=== PATIENT | male | born 1960 | race African-American/Black ===

== ENCOUNTER 2021-06-13 00:15 | Inpatient (IN) ==
[2021-06-13] MEDS ORDERED: SODIUM CHLORIDE 0.9% 1,000 ML IV STA ×2 (00:41→01:47)
[2021-06-13 01:12] LABS: ABG Base Excess -12.9 MMOL/L (-2.5-2.5); ABG HCO3 14.5 MMOL/L (20-26); ABG Oxygen Saturation 98.4 % (95-100); ABG PCO2 23.4 MM HG (35-48); ABG PH 7.316 (7.35-7.45); ABG TCO2 10.8 MMOL/L (23-27)
[2021-06-13 01:14] LABS: Basophils % 0.3 % (0.0-0.8); Hematocrit 33.8 VOL% (42.0-52.0); Immature Granulocytes % 0.6 %; Immature Granulocytes Absolute 0.06 #; Lymphocytes # 0.7 10*3/uL (1.4-4.0); Lymphocytes % 6.8 % (21.2-54.2); Mean Corpuscular HGB Conc 32.5 GM/DL (32-36); Mean Corpuscular Volume 73.8 FL (87-102); Mean Platelet Volume 10.3 FL (9.6-12.0); Neutrophils % 86.3 % (38.7-73.9); Platelet Count 372 T/CUMM (130-400); Red Blood Count 4.58 MC/CUMM (3.8-5.5); Red Cell Distribution Width 14.4 % (9.3-17.3); White Blood Count 10.5 T/CUMM (4-12)
[2021-06-13 01:28] LABS: PT Patient Result 10.9 SECS (10.5-12.0); Partial Thromboplastin Time 28.9 SECS (23.8-32.1)
[2021-06-13 01:34] LABS: Alanine Aminotransferase < 9 U/L (16-61); Albumin 2.8 G/DL (3.4-5.0); Alkaline Phosphatase 117 U/L (45-117); Aspartate Amino Transferase 6 U/L (0-37); Blood Urea Nitrogen 78 MG/DL (7-18); Calcium 9.4 MG/DL (8.5-10.1); Carbon Dioxide 14 MMOL/L (21-32); Osmolality,Calculated 297.6 MOS/KG (273-304); Potassium 4.3 MMOL/L (3.5-5.1); Sodium 124 MMOL/L (136-145); Total Protein 7.5 G/DL (6.4-8.2)
[2021-06-13 01:37] LABS: Estimated Glom Filtration Rate 0 ML/MIN
[2021-06-13 01:38] LABS: Glucose 566 MG/DL (74-106)
[2021-06-13] MEDS ORDERED: INSULIN REGULAR 100 UNIT/ML IV STA (01:41)
[2021-06-13] MEDS ORDERED: MORPHINE 4 MG/1 ML VIAL IV STA (01:41)
[2021-06-13] MEDS ORDERED: INSULIN REGULAR DRIP 100 ML IV PRN (01:41)
[2021-06-13] MEDS ORDERED: ONDANSETRON 4 MG/2 ML VIAL IV STA (01:41)
[2021-06-13] MEDS ORDERED: INSULIN REGULAR 100 UNIT/ML IV ONE (03:38)
[2021-06-13] MEDS ORDERED: SODIUM BICARB INJ 100 MEQ in STERILE WATER INJ 400 ML IV PRN (03:38)
[2021-06-13] MEDS ORDERED: DEXTROSE 10% 250 ML BAG IV PRN ×3 (03:38→18:13)
[2021-06-13] MEDS ORDERED: SODIUM CHLORIDE 0.9% 1,000 ML IV ONE (03:38)
[2021-06-13] MEDS ORDERED: SODIUM PHOSPHATE INJ 14.3 MMOL in SODIUM CHLORIDE 0.9% 250 ML IV PRN (03:38)
[2021-06-13] MEDS ORDERED: MAGNESIUM SULF RIDER 2 GM/50 ML PREMIX IV PRN (03:39)
[2021-06-13] MEDS ORDERED: MAGNESIUM SULF RIDER 4 GM/100 ML PREMIX IV PRN (03:39)
[2021-06-13] MEDS ORDERED: INSULIN REGULAR DRIP 100 ML IV SCH (04:00)
[2021-06-13] MEDS: SODIUM CHLORIDE 0.9% 1,000 ML IV SCH ×4 (05:06→09:50)
[2021-06-13] MEDS: ONDANSETRON 4 MG/2 ML VIAL IV PRN (05:15)
[2021-06-13 06:35] LABS: Basophils % 0.2 % (0.0-0.8); Eosinophils % 0.2 % (0.00-10.9); Hematocrit 29.2 VOL% (42.0-52.0); Hemoglobin 9.7 GM/DL (14.0-18.0); Immature Granulocytes % 0.6 %; Immature Granulocytes Absolute 0.06 #; Lymphocytes % 9.8 % (21.2-54.2); Mean Corpuscular HGB Conc 33.2 GM/DL (32-36); Mean Corpuscular Volume 72.6 FL (87-102); Mean Platelet Volume 9.3 FL (9.6-12.0); Monocytes % 10.8 % (1.7-12.7); Neutrophils % 78.4 % (38.7-73.9); Platelet Count 292 T/CUMM (130-400); Red Blood Count 4.02 MC/CUMM (3.8-5.5); Red Cell Distribution Width 14.2 % (9.3-17.3); White Blood Count 10.3 T/CUMM (4-12)
[2021-06-13 07:15] LABS: Calcium 8.2 MG/DL (8.5-10.1); Osmolality,Calculated 294.2 MOS/KG (273-304); Potassium 4.5 MMOL/L (3.5-5.1)
[2021-06-13] MEDS: DEXTROSE 5% NACL 0.9% 1,000 ML IV SCH ×3 (09:06→17:59)
[2021-06-13 09:14] LABS: Calcium 8.5 MG/DL (8.5-10.1); Osmolality,Calculated 291.2 MOS/KG (273-304); Potassium 3.6 MMOL/L (3.5-5.1)
[2021-06-13] MEDS: POTASSIUM CHLORIDE RIDER 10 MEQ/100 ML PREMIX IV PRN ×2 (09:30→10:30)
[2021-06-13] MEDS: ENOXAPARIN 30 MG/0.3 ML SYRINGE SUBCUT SCH (09:46)
[2021-06-13 13:18] LABS: Potassium 3.7 MMOL/L (3.5-5.1)
[2021-06-13] MEDS: DEXT 5% NACL 0.45% KCL 20 MEQ 20 MEQ/1,000 ML BAG IV SCH ×2 (13:46→17:59)
[2021-06-13] MEDS: INSULIN GLARGINE 100 UNIT/ML SUBCUT SCH (17:05)
[2021-06-13] MEDS: LACTATED RINGERS 1,000 ML IV SCH ×2 (17:43→23:41)
[2021-06-13] MEDS ORDERED: GLUCAGON 1 MG VIAL IM PRN (18:10)
[2021-06-13 18:39] LABS: Osmolality,Calculated 288.7 MOS/KG (273-304); Potassium 3.9 MMOL/L (3.5-5.1)
[2021-06-13] MEDS: INSULIN REGULAR 100 UNIT/ML SUBCUT SCH ×2 (19:27→22:16)
[2021-06-13] MEDS ORDERED: INSULIN GLARGINE 100 UNIT/ML SUBCUT SCH (21:00)
[2021-06-13] MEDS ORDERED: SODIUM CHLORIDE 0.45% 1,000 ML IV SCH (21:00)
[2021-06-13] MEDS ORDERED: INSULIN REGULAR 100 UNIT/ML SUBCUT SCH (22:00)
[2021-06-14] MEDS: INSULIN REGULAR 100 UNIT/ML SUBCUT SCH ×6 (00:16→20:15)
[2021-06-14] MEDS: LACTATED RINGERS 1,000 ML IV SCH ×4 (00:25→16:50)
[2021-06-14 03:48] LABS: Basophils % 0.3 % (0.0-0.8); Eosinophils # 0.2 10*3/uL (0.0-0.87); Eosinophils % 2.7 % (0.00-10.9); Hematocrit 27.9 VOL% (42.0-52.0); Hemoglobin 9.1 GM/DL (14.0-18.0); Immature Granulocytes % 0.3 %; Immature Granulocytes Absolute 0.02 #; Lymphocytes # 1.3 10*3/uL (1.4-4.0); Lymphocytes % 20.8 % (21.2-54.2); Mean Corpuscular HGB Conc 32.6 GM/DL (32-36); Mean Corpuscular Volume 72.8 FL (87-102); Mean Platelet Volume 9.3 FL (9.6-12.0); Neutrophils % 65.9 % (38.7-73.9); Platelet Count 282 T/CUMM (130-400); Red Blood Count 3.83 MC/CUMM (3.8-5.5); Red Cell Distribution Width 14.5 % (9.3-17.3); White Blood Count 6.2 T/CUMM (4-12)
[2021-06-14 04:03] LABS: Calcium 8.6 MG/DL (8.5-10.1); Osmolality,Calculated 288.7 MOS/KG (273-304); Potassium 3.7 MMOL/L (3.5-5.1)
[2021-06-14] MEDS: POTASSIUM CHLORIDE RIDER 10 MEQ/100 ML PREMIX IV PRN ×2 (04:39→05:39)
[2021-06-14 04:41] LABS: Bacteria,Urine Many /HPF (Few); RBC,Urine 37 /HPF (0-4); Squamous Epithelial Cell,Urine Occasional /HPF (0-10); Triple Phosphate Crystal,Urine Occasional /HPF (Few)
[2021-06-14 04:42] LABS: Glucose,Urine (UA) 100 mg/dL (Negative); Ketones,Urine Negative (Negative); Protein,Urine >=300 mg/dL (Negative); Urine Appearance Clear (Clear); Urine Color Yellow (Yellow); Urine Specific Gravity 1.015 (1.001-1.035); Urine pH > 9.0 (4.5-8.0)
[2021-06-14 04:43] LABS: Bilirubin,Urine Negative (Negative); Blood, Urine Moderate mg/dL (Negative); Nitrite,Urine Negative (Negative); Urine Urobilinogen 0.2 eU/dL (<2.0)
[2021-06-14] MEDS: ENOXAPARIN 30 MG/0.3 ML SYRINGE SUBCUT SCH (08:54)
[2021-06-14] MEDS: INSULIN GLARGINE 100 UNIT/ML SUBCUT SCH ×2 (08:54→20:15)
[2021-06-14] MEDS: METOPROLOL TARTRATE 25 MG TABLET PO SCH ×2 (08:54→20:15)
[2021-06-14] MEDS ORDERED: ALUMINUM/MAGNES/SIMETH MAX STR 30 ML UDCUP PO PRN (12:26)
[2021-06-14] MEDS: PANTOPRAZOLE 40 MG TABLET PO SCH (12:53)
[2021-06-14] MEDS: amLODIPine 5 MG TABLET PO SCH (14:45)
[2021-06-14] MEDS: ASPIRIN EC 81 MG TABLET PO SCH (14:45)
[2021-06-14] MEDS: RIVAROXABAN 2.5 MG TABLET PO SCH ×2 (15:25→20:15)
[2021-06-14] MEDS: GABAPENTIN 400 MG CAPSULE PO SCH (20:15)
[2021-06-14] MEDS: ATORVASTATIN 40 MG TABLET PO SCH (20:15)
[2021-06-14] MEDS: GABAPENTIN 300 MG CAPSULE PO SCH (20:16)
[2021-06-15] MEDS: INSULIN REGULAR 100 UNIT/ML SUBCUT SCH ×6 (00:10→20:42)
[2021-06-15] MEDS: LACTATED RINGERS 1,000 ML IV SCH ×4 (00:33→21:00)
[2021-06-15 04:19] LABS: Basophils % 0.5 % (0.0-0.8); Eosinophils # 0.3 10*3/uL (0.0-0.87); Eosinophils % 5.1 % (0.00-10.9); Hematocrit 29.3 VOL% (42.0-52.0); Hemoglobin 9.4 GM/DL (14.0-18.0); Immature Granulocytes % 0.4 %; Immature Granulocytes Absolute 0.02 #; Lymphocytes # 1.9 10*3/uL (1.4-4.0); Lymphocytes % 34.4 % (21.2-54.2); Mean Corpuscular HGB Conc 32.1 GM/DL (32-36); Mean Corpuscular Volume 75.1 FL (87-102); Mean Platelet Volume 9.9 FL (9.6-12.0); Monocytes % 12.1 % (1.7-12.7); Neutrophils % 47.5 % (38.7-73.9); Platelet Count 298 T/CUMM (130-400); Red Cell Distribution Width 14.7 % (9.3-17.3); White Blood Count 5.5 T/CUMM (4-12)
[2021-06-15 04:26] LABS: Calcium 8.4 MG/DL (8.5-10.1); Osmolality,Calculated 285.3 MOS/KG (273-304); Potassium 4.3 MMOL/L (3.5-5.1)
[2021-06-15] MEDS: MORPHINE 2 MG/1 ML SYRINGE IV PRN ×3 (08:46→20:42)
[2021-06-15] MEDS: ASPIRIN EC 81 MG TABLET PO SCH (08:46)
[2021-06-15] MEDS: CALCIUM (CARBONATE)/VITAMIN D 600 MG-400 UNIT TABLET PO SCH (08:47)
[2021-06-15] MEDS: amLODIPine 5 MG TABLET PO SCH (08:47)
[2021-06-15] MEDS: PANTOPRAZOLE 40 MG TABLET PO SCH (08:48)
[2021-06-15] MEDS: GABAPENTIN 300 MG CAPSULE PO SCH ×2 (08:48→21:09)
[2021-06-15] MEDS: RIVAROXABAN 2.5 MG TABLET PO SCH ×2 (08:48→20:40)
[2021-06-15] MEDS: METOPROLOL TARTRATE 25 MG TABLET PO SCH ×2 (08:48→20:40)
[2021-06-15] MEDS: INSULIN GLARGINE 100 UNIT/ML SUBCUT SCH (08:48)
[2021-06-15] MEDS: cefTRIAXone 1,000 MG in SODIUM CHLORIDE 0.9% 100 ML IV SCH (11:29)
[2021-06-15] MEDS: LINEZOLID 600 MG TABLET PO SCH ×2 (11:29→20:40)
[2021-06-15] MEDS: GABAPENTIN 400 MG CAPSULE PO SCH (20:40)
[2021-06-15] MEDS: ATORVASTATIN 40 MG TABLET PO SCH (20:40)
[2021-06-15] MEDS ORDERED: INSULIN GLARGINE 100 UNIT/ML SUBCUT SCH (21:00)
[2021-06-16] MEDS: LACTATED RINGERS 1,000 ML IV SCH ×3 (00:41→18:38)
[2021-06-16] MEDS: INSULIN REGULAR 100 UNIT/ML SUBCUT SCH ×6 (00:41→21:00)
[2021-06-16 07:40] LABS: Calcium 8.4 MG/DL (8.5-10.1); Osmolality,Calculated 280.7 MOS/KG (273-304); Potassium 4.1 MMOL/L (3.5-5.1)
[2021-06-16] MEDS: RIVAROXABAN 2.5 MG TABLET PO SCH ×2 (09:46→21:01)
[2021-06-16] MEDS: PANTOPRAZOLE 40 MG TABLET PO SCH (09:46)
[2021-06-16] MEDS: METOPROLOL TARTRATE 25 MG TABLET PO SCH ×2 (09:46→21:01)
[2021-06-16] MEDS: amLODIPine 5 MG TABLET PO SCH (09:46)
[2021-06-16] MEDS: GABAPENTIN 300 MG CAPSULE PO SCH (09:46)
[2021-06-16] MEDS: CALCIUM (CARBONATE)/VITAMIN D 600 MG-400 UNIT TABLET PO SCH (09:46)
[2021-06-16] MEDS: ASPIRIN EC 81 MG TABLET PO SCH (09:46)
[2021-06-16] MEDS: LINEZOLID 600 MG TABLET PO SCH ×2 (09:47→21:02)
[2021-06-16] MEDS: cefTRIAXone 1,000 MG in SODIUM CHLORIDE 0.9% 100 ML IV SCH (11:55)
[2021-06-16] MEDS: MEROPENEM 500 MG in SODIUM CHLORIDE 0.9% 100 ML IV SCH ×2 (13:33→21:02)
[2021-06-16] MEDS: POLYETHYLENE GLYCOL POWDER 17 GM PACK PO SCH ×2 (14:37→21:01)
[2021-06-16] MEDS: DOCUSATE SODIUM 100 MG CAPSULE PO SCH ×2 (14:37→21:02)
[2021-06-16] MEDS ORDERED: INSULIN GLARGINE 100 UNIT/ML SUBCUT SCH (21:00)
[2021-06-16] MEDS: GABAPENTIN 400 MG CAPSULE PO SCH (21:01)
[2021-06-16] MEDS: ATORVASTATIN 40 MG TABLET PO SCH (21:02)
[2021-06-17] MEDS: INSULIN REGULAR 100 UNIT/ML SUBCUT SCH ×6 (02:47→21:44)
[2021-06-17] MEDS: MEROPENEM 500 MG in SODIUM CHLORIDE 0.9% 100 ML IV SCH ×3 (04:21→21:45)
[2021-06-17 06:23] LABS: Calcium 8.4 MG/DL (8.5-10.1); Osmolality,Calculated 281.7 MOS/KG (273-304); Potassium 4.5 MMOL/L (3.5-5.1)
[2021-06-17] MEDS: DOCUSATE SODIUM 100 MG CAPSULE PO SCH ×2 (09:30→21:45)
[2021-06-17] MEDS: RIVAROXABAN 2.5 MG TABLET PO SCH ×2 (09:30→21:45)
[2021-06-17] MEDS: amLODIPine 5 MG TABLET PO SCH (09:30)
[2021-06-17] MEDS: LINEZOLID 600 MG TABLET PO SCH ×2 (09:30→21:45)
[2021-06-17] MEDS: METOPROLOL TARTRATE 25 MG TABLET PO SCH ×2 (09:30→21:45)
[2021-06-17] MEDS: GABAPENTIN 300 MG CAPSULE PO SCH ×2 (09:30→16:04)
[2021-06-17] MEDS: ASPIRIN EC 81 MG TABLET PO SCH (09:30)
[2021-06-17] MEDS: CALCIUM (CARBONATE)/VITAMIN D 600 MG-400 UNIT TABLET PO SCH (09:30)
[2021-06-17] MEDS: PANTOPRAZOLE 40 MG TABLET PO SCH (09:30)
[2021-06-17] MEDS: POLYETHYLENE GLYCOL POWDER 17 GM PACK PO SCH ×2 (09:34→21:44)
[2021-06-17] MEDS ORDERED: INSULIN GLARGINE 100 UNIT/ML SUBCUT SCH (21:00)
[2021-06-17] MEDS: GABAPENTIN 400 MG CAPSULE PO SCH (21:45)
[2021-06-17] MEDS: ATORVASTATIN 40 MG TABLET PO SCH (21:45)
[2021-06-17] MEDS: MORPHINE 2 MG/1 ML SYRINGE IV PRN (21:52)
[2021-06-18] MEDS: INSULIN REGULAR 100 UNIT/ML SUBCUT SCH ×3 (01:29→09:46)
[2021-06-18 04:50] LABS: Calcium 8.2 MG/DL (8.5-10.1); Osmolality,Calculated 288.5 MOS/KG (273-304)
[2021-06-18] MEDS: MORPHINE 2 MG/1 ML SYRINGE IV PRN ×3 (04:51→18:22)
[2021-06-18] MEDS: MEROPENEM 500 MG in SODIUM CHLORIDE 0.9% 100 ML IV SCH ×3 (04:52→20:26)
[2021-06-18] MEDS: POLYETHYLENE GLYCOL POWDER 17 GM PACK PO SCH ×2 (09:36→20:22)
[2021-06-18] MEDS: PANTOPRAZOLE 40 MG TABLET PO SCH (09:37)
[2021-06-18] MEDS: DOCUSATE SODIUM 100 MG CAPSULE PO SCH ×2 (09:37→20:22)
[2021-06-18] MEDS: amLODIPine 5 MG TABLET PO SCH (09:37)
[2021-06-18] MEDS: ASPIRIN EC 81 MG TABLET PO SCH (09:37)
[2021-06-18] MEDS: CALCIUM (CARBONATE)/VITAMIN D 600 MG-400 UNIT TABLET PO SCH (09:37)
[2021-06-18] MEDS: LINEZOLID 600 MG TABLET PO SCH ×2 (09:37→20:23)
[2021-06-18] MEDS: METOPROLOL TARTRATE 25 MG TABLET PO SCH ×2 (09:37→20:24)
[2021-06-18] MEDS: RIVAROXABAN 2.5 MG TABLET PO SCH ×2 (09:37→20:23)
[2021-06-18] MEDS: GABAPENTIN 300 MG CAPSULE PO SCH ×2 (09:38→14:31)
[2021-06-18] MEDS: ONDANSETRON 4 MG/2 ML VIAL IV PRN ×2 (09:39→18:22)
[2021-06-18] MEDS: INSULIN LISPRO 100 UNIT/ML SUBCUT SCH ×2 (16:13→20:25)
[2021-06-18] MEDS: GABAPENTIN 400 MG CAPSULE PO SCH (20:23)
[2021-06-18] MEDS: INSULIN GLARGINE 100 UNIT/ML SUBCUT SCH (20:25)
[2021-06-18] MEDS: ATORVASTATIN 40 MG TABLET PO SCH (20:31)
[2021-06-19] MEDS: MEROPENEM 500 MG in SODIUM CHLORIDE 0.9% 100 ML IV SCH ×3 (05:21→20:14)
[2021-06-19 06:17] LABS: Calcium 8.3 MG/DL (8.5-10.1); Osmolality,Calculated 284.7 MOS/KG (273-304); Potassium 4.1 MMOL/L (3.5-5.1)
[2021-06-19] MEDS: POLYETHYLENE GLYCOL POWDER 17 GM PACK PO SCH ×2 (08:30→20:18)
[2021-06-19] MEDS: INSULIN LISPRO 100 UNIT/ML SUBCUT SCH ×4 (08:30→20:18)
[2021-06-19] MEDS: ASPIRIN EC 81 MG TABLET PO SCH (08:30)
[2021-06-19] MEDS: DOCUSATE SODIUM 100 MG CAPSULE PO SCH ×2 (08:31→20:19)
[2021-06-19] MEDS: METOPROLOL TARTRATE 25 MG TABLET PO SCH ×2 (08:31→20:18)
[2021-06-19] MEDS: GABAPENTIN 300 MG CAPSULE PO SCH (08:31)
[2021-06-19] MEDS: RIVAROXABAN 2.5 MG TABLET PO SCH ×2 (08:31→20:19)
[2021-06-19] MEDS: PANTOPRAZOLE 40 MG TABLET PO SCH (08:31)
[2021-06-19] MEDS: amLODIPine 5 MG TABLET PO SCH (08:31)
[2021-06-19] MEDS: CALCIUM (CARBONATE)/VITAMIN D 600 MG-400 UNIT TABLET PO SCH (08:31)
[2021-06-19] MEDS: LINEZOLID 600 MG TABLET PO SCH ×2 (08:31→20:19)
[2021-06-19] MEDS: ONDANSETRON 4 MG/2 ML VIAL IV PRN (13:45)
[2021-06-19] MEDS: MORPHINE 2 MG/1 ML SYRINGE IV PRN ×2 (13:45→20:18)
[2021-06-19] MEDS: SODIUM CHLORIDE 0.45% 1,000 ML IV SCH (13:53)
[2021-06-19] MEDS: INSULIN GLARGINE 100 UNIT/ML SUBCUT SCH (20:17)
[2021-06-19] MEDS: ATORVASTATIN 40 MG TABLET PO SCH (20:18)
[2021-06-20] MEDS: MEROPENEM 500 MG in SODIUM CHLORIDE 0.9% 100 ML IV SCH ×3 (04:09→21:09)
[2021-06-20 05:33] LABS: Basophils % 0.7 % (0.0-0.8); Eosinophils # 0.4 10*3/uL (0.0-0.87); Eosinophils % 6.4 % (0.00-10.9); Hematocrit 27.5 VOL% (42.0-52.0); Hemoglobin 8.6 GM/DL (14.0-18.0); Immature Granulocytes % 0.4 %; Immature Granulocytes Absolute 0.02 #; Lymphocytes # 1.3 10*3/uL (1.4-4.0); Lymphocytes % 23.6 % (21.2-54.2); Mean Corpuscular HGB Conc 31.3 GM/DL (32-36); Mean Corpuscular Volume 76.8 FL (87-102); Mean Platelet Volume 9.8 FL (9.6-12.0); Monocytes % 11.8 % (1.7-12.7); Neutrophils % 57.1 % (38.7-73.9); Platelet Count 321 T/CUMM (130-400); Red Blood Count 3.58 MC/CUMM (3.8-5.5); Red Cell Distribution Width 14.7 % (9.3-17.3); White Blood Count 5.5 T/CUMM (4-12)
[2021-06-20 05:41] LABS: Calcium 7.7 MG/DL (8.5-10.1); Osmolality,Calculated 283.5 MOS/KG (273-304); Potassium 4.4 MMOL/L (3.5-5.1)
[2021-06-20] MEDS: SODIUM CHLORIDE 0.45% 1,000 ML IV SCH (05:57)
[2021-06-20] MEDS: INSULIN LISPRO 100 UNIT/ML SUBCUT SCH ×4 (10:23→21:08)
[2021-06-20] MEDS: ASPIRIN EC 81 MG TABLET PO SCH (10:24)
[2021-06-20] MEDS: METOPROLOL TARTRATE 25 MG TABLET PO SCH ×2 (10:24→21:11)
[2021-06-20] MEDS: LINEZOLID 600 MG TABLET PO SCH ×2 (10:24→21:11)
[2021-06-20] MEDS: amLODIPine 5 MG TABLET PO SCH (10:25)
[2021-06-20] MEDS: PANTOPRAZOLE 40 MG TABLET PO SCH (10:25)
[2021-06-20] MEDS: CALCIUM (CARBONATE)/VITAMIN D 600 MG-400 UNIT TABLET PO SCH (10:26)
[2021-06-20] MEDS: RIVAROXABAN 2.5 MG TABLET PO SCH ×2 (10:26→21:11)
[2021-06-20] MEDS: POLYETHYLENE GLYCOL POWDER 17 GM PACK PO SCH ×2 (10:30→21:07)
[2021-06-20] MEDS: DOCUSATE SODIUM 100 MG CAPSULE PO SCH ×2 (10:30→21:11)
[2021-06-20] MEDS: INSULIN GLARGINE 100 UNIT/ML SUBCUT SCH (21:08)
[2021-06-20] MEDS: ATORVASTATIN 40 MG TABLET PO SCH (21:11)
[2021-06-21] MEDS: SODIUM CHLORIDE 0.45% 1,000 ML IV SCH ×2 (04:32→21:13)
[2021-06-21] MEDS: MEROPENEM 500 MG in SODIUM CHLORIDE 0.9% 100 ML IV SCH ×3 (04:33→20:50)
[2021-06-21 08:38] LABS: Basophils % 0.6 % (0.0-0.8); Eosinophils # 0.3 10*3/uL (0.0-0.87); Hematocrit 28.4 VOL% (42.0-52.0); Hemoglobin 8.8 GM/DL (14.0-18.0); Immature Granulocytes % 0.3 %; Immature Granulocytes Absolute 0.02 #; Lymphocytes # 1.3 10*3/uL (1.4-4.0); Lymphocytes % 18.7 % (21.2-54.2); Mean Corpuscular Volume 77.4 FL (87-102); Mean Platelet Volume 9.5 FL (9.6-12.0); Monocytes % 8.7 % (1.7-12.7); Neutrophils % 66.7 % (38.7-73.9); Platelet Count 312 T/CUMM (130-400); Red Blood Count 3.67 MC/CUMM (3.8-5.5); Red Cell Distribution Width 14.7 % (9.3-17.3); White Blood Count 6.8 T/CUMM (4-12)
[2021-06-21 08:59] LABS: Alanine Aminotransferase < 9 U/L (16-61); Alkaline Phosphatase 100 U/L (45-117); Aspartate Amino Transferase 15 U/L (0-37); Bilirubin,Total < 0.39 MG/DL (0.20-1.00); Blood Urea Nitrogen 31 MG/DL (7-18); Calcium 8.6 MG/DL (8.5-10.1); Carbon Dioxide 25 MMOL/L (21-32); Estimated Glom Filtration Rate 32 ML/MIN; Glucose 120 MG/DL (74-106); Osmolality,Calculated 284.5 MOS/KG (273-304); Potassium 4.2 MMOL/L (3.5-5.1); Sodium 139 MMOL/L (136-145); Total Protein 5.9 G/DL (6.4-8.2)
[2021-06-21] MEDS: METOPROLOL TARTRATE 25 MG TABLET PO SCH ×2 (09:59→20:50)
[2021-06-21] MEDS: amLODIPine 5 MG TABLET PO SCH (09:59)
[2021-06-21] MEDS: ASPIRIN EC 81 MG TABLET PO SCH (10:03)
[2021-06-21] MEDS: LINEZOLID 600 MG TABLET PO SCH ×2 (10:03→20:50)
[2021-06-21] MEDS: RIVAROXABAN 2.5 MG TABLET PO SCH ×2 (10:04→20:50)
[2021-06-21] MEDS: POLYETHYLENE GLYCOL POWDER 17 GM PACK PO SCH ×2 (10:04→20:51)
[2021-06-21] MEDS: PANTOPRAZOLE 40 MG TABLET PO SCH (10:04)
[2021-06-21] MEDS: CALCIUM (CARBONATE)/VITAMIN D 600 MG-400 UNIT TABLET PO SCH (10:04)
[2021-06-21] MEDS: DOCUSATE SODIUM 100 MG CAPSULE PO SCH ×2 (10:05→20:51)
[2021-06-21] MEDS: INSULIN LISPRO 100 UNIT/ML SUBCUT SCH ×4 (10:11→20:49)
[2021-06-21] MEDS: INSULIN GLARGINE 100 UNIT/ML SUBCUT SCH (20:49)
[2021-06-21] MEDS: ATORVASTATIN 40 MG TABLET PO SCH (20:50)
[2021-06-22] MEDS: MEROPENEM 500 MG in SODIUM CHLORIDE 0.9% 100 ML IV SCH ×2 (04:50→12:42)
[2021-06-22 05:58] LABS: Alanine Aminotransferase < 9 U/L (16-61); Albumin 1.9 G/DL (3.4-5.0); Alkaline Phosphatase 75 U/L (45-117); Aspartate Amino Transferase 13 U/L (0-37); Bilirubin,Total < 0.39 MG/DL (0.20-1.00); Blood Urea Nitrogen 29 MG/DL (7-18); Calcium 8.5 MG/DL (8.5-10.1); Carbon Dioxide 24 MMOL/L (21-32); Estimated Glom Filtration Rate 37 ML/MIN; Glucose 68 MG/DL (74-106); Osmolality,Calculated 284.3 MOS/KG (273-304); Potassium 4.1 MMOL/L (3.5-5.1); Sodium 141 MMOL/L (136-145); Total Protein 5.5 G/DL (6.4-8.2)
[2021-06-22] MEDS: INSULIN LISPRO 100 UNIT/ML SUBCUT SCH (07:33)
[2021-06-22] MEDS: CALCIUM (CARBONATE)/VITAMIN D 600 MG-400 UNIT TABLET PO SCH (08:52)
[2021-06-22] MEDS: METOPROLOL TARTRATE 25 MG TABLET PO SCH (08:52)
[2021-06-22] MEDS: ASPIRIN EC 81 MG TABLET PO SCH (08:52)
[2021-06-22] MEDS: amLODIPine 5 MG TABLET PO SCH (08:53)
[2021-06-22] MEDS: RIVAROXABAN 2.5 MG TABLET PO SCH (08:54)
[2021-06-22] MEDS: DOCUSATE SODIUM 100 MG CAPSULE PO SCH (08:54)
[2021-06-22] MEDS: PANTOPRAZOLE 40 MG TABLET PO SCH (08:54)
[2021-06-22] MEDS: POLYETHYLENE GLYCOL POWDER 17 GM PACK PO SCH (08:55)
[2021-06-22] MEDS ORDERED: INSULIN GLARGINE 100 UNIT/ML SUBCUT SCH (09:00)
[2021-06-22 12:22] VITALS: BP 136/88
[2021-06-22] MEDS: LINEZOLID 600 MG TABLET PO SCH (12:42)
[2021-06-22] MEDS ORDERED: FOSFOMYCIN 3 GM PACK PO ONE (15:00)
== END 2021-06-22 16:27 | disposition home or self-care (01) | DRG 638 ==
LOC: N.ED 00:15 → SUATTDRO 03:38 → N.ICU 03:38 → N.5E 06-15 18:48
PROVIDERS: ADMIT Internal Medicine; ATTEND Internal Medicine

== ENCOUNTER 2021-08-11 19:04 | Inpatient (IN) ==
[2021-08-11] MEDS ORDERED: FUROSEMIDE 100 MG/10 ML VIAL IV STA (20:52)
[2021-08-11 21:40] LABS: Basophils % 0.8 % (0.0-0.8); Eosinophils # 0.2 10*3/uL (0.0-0.87); Hematocrit 33.5 VOL% (42.0-52.0); Hemoglobin 10.2 GM/DL (14.0-18.0); Immature Granulocytes % 0.6 %; Immature Granulocytes Absolute 0.03 #; Lymphocytes # 1.1 10*3/uL (1.4-4.0); Lymphocytes % 20.8 % (21.2-54.2); Mean Corpuscular HGB Conc 30.4 GM/DL (32-36); Mean Corpuscular Volume 75.6 FL (87-102); Mean Platelet Volume 10.9 FL (9.6-12.0); Monocytes # 0.6 10*3/uL (0.11-0.8); Monocytes % 12.1 % (1.7-12.7); Neutrophils % 61.7 % (38.7-73.9); Platelet Count 307 T/CUMM (130-400); Red Blood Count 4.43 MC/CUMM (3.8-5.5); Red Cell Distribution Width 16.9 % (9.3-17.3); White Blood Count 5.3 T/CUMM (4-12)
[2021-08-11 21:52] LABS: INR 1.1; PT Patient Result 11.7 SECS (10.5-12.0); Partial Thromboplastin Time 31.5 SECS (23.8-32.1)
[2021-08-11 21:59] LABS: Alanine Aminotransferase 12 U/L (16-61); Albumin 2.2 G/DL (3.4-5.0); Alkaline Phosphatase 142 U/L (45-117); Aspartate Amino Transferase 9 U/L (0-37); Bilirubin,Total < 0.39 MG/DL (0.20-1.00); Blood Urea Nitrogen 48 MG/DL (7-18); Calcium 8.5 MG/DL (8.5-10.1); Carbon Dioxide 26 MMOL/L (21-32); Chloride 105 MMOL/L (98-107); Glucose 373 MG/DL (74-106); Osmolality,Calculated 304.5 MOS/KG (273-304); Potassium 4.2 MMOL/L (3.5-5.1); Sodium 139 MMOL/L (136-145); Total Protein 5.4 G/DL (6.4-8.2)
[2021-08-11 22:14] LABS: RBC,Urine 16 /HPF (0-4); Squamous Epithelial Cell,Urine Occasional /HPF (0-10)
[2021-08-11 22:15] LABS: Glucose,Urine (UA) 500 mg/dL (Negative); Ketones,Urine Negative (Negative); Protein,Urine 100 mg/dL (Negative); Urine Appearance Cloudy (Clear); Urine Color Light Yellow (Yellow); Urine pH 6.5 (4.5-8.0)
[2021-08-11 22:16] LABS: Bilirubin,Urine Negative (Negative); Blood, Urine Large mg/dL (Negative); Nitrite,Urine Negative (Negative); Urine Urobilinogen 0.2 eU/dL (<2.0)
[2021-08-11] MEDS ORDERED: cefTRIAXone 1,000 MG in SODIUM CHLORIDE 0.9% 100 ML IV STA (22:25)
[2021-08-11] MEDS ORDERED: GLUCAGON 1 MG VIAL IM PRN ×2 (22:26)
[2021-08-11] MEDS ORDERED: hydrALAZINE 20 MG/1 ML VIAL IV PRN (22:26)
[2021-08-11] MEDS ORDERED: NICOTINE 21 MG/24 HR PATCH TRANSDERM PRN (22:26)
[2021-08-11] MEDS ORDERED: DEXTROSE 50% 25 GM/50 ML VIAL IV PRN (22:26)
[2021-08-11] MEDS ORDERED: DEXTROSE 10% 250 ML BAG IV PRN (22:26)
[2021-08-11] MEDS ORDERED: diphenhydrAMINE CAP 25 MG CAPSULE PO PRN (22:26)
[2021-08-11] MEDS ORDERED: ZALEPLON 5 MG CAPSULE PO PRN (22:26)
[2021-08-11] MEDS ORDERED: ACETAMINOPHEN 325 MG TABLET PO PRN (22:26)
[2021-08-11] MEDS ORDERED: DOCUSATE SODIUM 100 MG CAPSULE PO PRN (22:26)
[2021-08-11] MEDS ORDERED: guaiFENesin/DM ER 600-30 MG TABLET PO PRN (22:26)
[2021-08-11] MEDS ORDERED: ONDANSETRON 4 MG/2 ML VIAL IV PRN (22:26)
[2021-08-12 05:15] LABS: Basophils # 0.1 10*3/uL (0.0-0.2); Basophils % 1.2 % (0.0-0.8); Eosinophils # 0.2 10*3/uL (0.0-0.87); Eosinophils % 3.7 % (0.00-10.9); Hematocrit 32.6 VOL% (42.0-52.0); Immature Granulocytes % 0.4 %; Immature Granulocytes Absolute 0.02 #; Lymphocytes # 1.2 10*3/uL (1.4-4.0); Lymphocytes % 23.7 % (21.2-54.2); Mean Corpuscular HGB Conc 30.7 GM/DL (32-36); Mean Corpuscular Volume 75.1 FL (87-102); Monocytes # 0.6 10*3/uL (0.11-0.8); Monocytes % 10.8 % (1.7-12.7); Neutrophils % 60.2 % (38.7-73.9); Platelet Count 282 T/CUMM (130-400); Red Blood Count 4.34 MC/CUMM (3.8-5.5); Red Cell Distribution Width 16.8 % (9.3-17.3); White Blood Count 5.2 T/CUMM (4-12)
[2021-08-12 05:41] LABS: Calcium 8.9 MG/DL (8.5-10.1); Osmolality,Calculated 304.7 MOS/KG (273-304); Potassium 3.8 MMOL/L (3.5-5.1)
[2021-08-12] MEDS: PANTOPRAZOLE 40 MG TABLET PO SCH (08:59)
[2021-08-12] MEDS: INSULIN LISPRO 100 UNIT/ML SUBCUT SCH ×5 (09:00→21:58)
[2021-08-12] MEDS: FUROSEMIDE 40 MG/4 ML VIAL IV SCH ×2 (09:00→16:08)
[2021-08-12] MEDS: HEPARIN 5,000 UNIT/1 ML VIAL SUBCUT SCH ×2 (09:01→21:56)
[2021-08-12] MEDS ORDERED: INSULIN GLARGINE 100 UNIT/ML SUBCUT SCH (09:30)
[2021-08-12] MEDS: METOPROLOL TARTRATE 25 MG TABLET PO SCH ×2 (11:32→21:56)
[2021-08-12] MEDS: ROSUVASTATIN 20 MG TABLET PO SCH (11:32)
[2021-08-12] MEDS: ASPIRIN EC 81 MG TABLET PO SCH (11:32)
[2021-08-12] MEDS ORDERED: GLUCAGON 1 MG VIAL IM PRN (15:37)
[2021-08-12] MEDS ORDERED: DEXTROSE 50% 25 GM/50 ML VIAL IV PRN (15:37)
[2021-08-12] MEDS: cefTRIAXone 1,000 MG in SODIUM CHLORIDE 0.9% 100 ML IV SCH (21:56)
[2021-08-13 06:12] LABS: Risk Ratio 2.63; VLDL Cholesterol 22.6 MG/DL
[2021-08-13 07:20] LABS: Basophils % 0.7 % (0.0-0.8); Eosinophils # 0.2 10*3/uL (0.0-0.87); Eosinophils % 4.2 % (0.00-10.9); Hemoglobin 10.2 GM/DL (14.0-18.0); Immature Granulocytes % 0.4 %; Immature Granulocytes Absolute 0.02 #; Lymphocytes # 1.6 10*3/uL (1.4-4.0); Mean Corpuscular Volume 75.9 FL (87-102); Mean Platelet Volume 10.9 FL (9.6-12.0); Monocytes # 0.7 10*3/uL (0.11-0.8); Monocytes % 12.2 % (1.7-12.7); Neutrophils % 53.5 % (38.7-73.9); Platelet Count 295 T/CUMM (130-400); Red Blood Count 4.48 MC/CUMM (3.8-5.5); Red Cell Distribution Width 17.2 % (9.3-17.3); White Blood Count 5.7 T/CUMM (4-12)
[2021-08-13] MEDS: INSULIN LISPRO 100 UNIT/ML SUBCUT SCH ×4 (08:05→21:39)
[2021-08-13] MEDS: ROSUVASTATIN 20 MG TABLET PO SCH (08:51)
[2021-08-13] MEDS: PANTOPRAZOLE 40 MG TABLET PO SCH (08:51)
[2021-08-13] MEDS: METOPROLOL TARTRATE 25 MG TABLET PO SCH ×2 (08:51→21:39)
[2021-08-13] MEDS: ASPIRIN EC 81 MG TABLET PO SCH (08:51)
[2021-08-13] MEDS: FUROSEMIDE 40 MG/4 ML VIAL IV SCH ×2 (08:52→18:20)
[2021-08-13] MEDS: cefTRIAXone 1,000 MG in SODIUM CHLORIDE 0.9% 100 ML IV SCH (08:52)
[2021-08-13] MEDS: HEPARIN 5,000 UNIT/1 ML VIAL SUBCUT SCH ×2 (08:52→21:44)
[2021-08-13] MEDS: INSULIN GLARGINE 100 UNIT/ML SUBCUT SCH (10:20)
[2021-08-13 11:33] LABS: Calcium 8.5 MG/DL (8.5-10.1); Potassium 4.1 MMOL/L (3.5-5.1)
[2021-08-13] MEDS: MEROPENEM 500 MG in SODIUM CHLORIDE 0.9% 100 ML IV SCH (18:20)
[2021-08-14] MEDS: MEROPENEM 500 MG in SODIUM CHLORIDE 0.9% 100 ML IV SCH ×2 (03:03→17:27)
[2021-08-14 05:14] LABS: Basophils # 0.1 10*3/uL (0.0-0.2); Basophils % 1.4 % (0.0-0.8); Eosinophils # 0.3 10*3/uL (0.0-0.87); Eosinophils % 5.6 % (0.00-10.9); Hematocrit 32.7 VOL% (42.0-52.0); Immature Granulocytes % 0.6 %; Immature Granulocytes Absolute 0.03 #; Lymphocytes # 1.4 10*3/uL (1.4-4.0); Lymphocytes % 27.4 % (21.2-54.2); Mean Corpuscular HGB Conc 30.6 GM/DL (32-36); Mean Corpuscular Volume 75.5 FL (87-102); Mean Platelet Volume 11.6 FL (9.6-12.0); Monocytes # 0.8 10*3/uL (0.11-0.8); Platelet Count 233 T/CUMM (130-400); Red Blood Count 4.33 MC/CUMM (3.8-5.5); Red Cell Distribution Width 17.2 % (9.3-17.3)
[2021-08-14 05:33] LABS: Calcium 8.2 MG/DL (8.5-10.1); Osmolality,Calculated 296.3 MOS/KG (273-304); Potassium 3.5 MMOL/L (3.5-5.1)
[2021-08-14] MEDS: INSULIN LISPRO 100 UNIT/ML SUBCUT SCH ×4 (07:44→21:21)
[2021-08-14] MEDS: PANTOPRAZOLE 40 MG TABLET PO SCH (08:22)
[2021-08-14] MEDS: FUROSEMIDE 40 MG/4 ML VIAL IV SCH (08:23)
[2021-08-14] MEDS: RIVAROXABAN 2.5 MG TABLET PO SCH ×2 (08:23→21:22)
[2021-08-14] MEDS: METOPROLOL TARTRATE 25 MG TABLET PO SCH (08:23)
[2021-08-14] MEDS: ASPIRIN EC 81 MG TABLET PO SCH (08:23)
[2021-08-14] MEDS: ROSUVASTATIN 20 MG TABLET PO SCH (08:23)
[2021-08-14] MEDS: INSULIN GLARGINE 100 UNIT/ML SUBCUT SCH (08:24)
[2021-08-14] MEDS: FUROSEMIDE 40 MG TABLET PO SCH (17:27)
[2021-08-14] MEDS: METOPROLOL TARTRATE 50 MG TABLET PO SCH (21:22)
[2021-08-15] MEDS: MEROPENEM 500 MG in SODIUM CHLORIDE 0.9% 100 ML IV SCH (04:47)
[2021-08-15] MEDS: INSULIN LISPRO 100 UNIT/ML SUBCUT SCH ×2 (07:26→11:32)
[2021-08-15] MEDS: PANTOPRAZOLE 40 MG TABLET PO SCH (08:04)
[2021-08-15] MEDS: ASPIRIN EC 81 MG TABLET PO SCH (08:04)
[2021-08-15] MEDS: INSULIN GLARGINE 100 UNIT/ML SUBCUT SCH (08:04)
[2021-08-15] MEDS: METOPROLOL TARTRATE 50 MG TABLET PO SCH (08:04)
[2021-08-15] MEDS: ROSUVASTATIN 20 MG TABLET PO SCH (08:04)
[2021-08-15] MEDS: RIVAROXABAN 2.5 MG TABLET PO SCH (08:04)
[2021-08-15] MEDS: FUROSEMIDE 40 MG TABLET PO SCH ×2 (08:04→16:04)
[2021-08-15 08:49] LABS: Basophils # 0.1 10*3/uL (0.0-0.2); Basophils % 1.1 % (0.0-0.8); Eosinophils # 0.2 10*3/uL (0.0-0.87); Eosinophils % 4.4 % (0.00-10.9); Hematocrit 38.6 VOL% (42.0-52.0); Hemoglobin 11.6 GM/DL (14.0-18.0); Immature Granulocytes % 0.4 %; Immature Granulocytes Absolute 0.02 #; Lymphocytes # 1.3 10*3/uL (1.4-4.0); Lymphocytes % 22.9 % (21.2-54.2); Mean Corpuscular HGB Conc 30.1 GM/DL (32-36); Mean Corpuscular Volume 75.5 FL (87-102); Monocytes # 0.5 10*3/uL (0.11-0.8); Monocytes % 9.1 % (1.7-12.7); Neutrophils % 62.1 % (38.7-73.9); Platelet Count 215 T/CUMM (130-400); Red Blood Count 5.11 MC/CUMM (3.8-5.5); Red Cell Distribution Width 17.4 % (9.3-17.3); White Blood Count 5.5 T/CUMM (4-12)
[2021-08-15 09:02] LABS: Osmolality,Calculated 288.5 MOS/KG (273-304); Potassium 3.5 MMOL/L (3.5-5.1)
[2021-08-15 11:30] VITALS: BP 163/86
[2021-08-15] MEDS ORDERED: LEVOFLOXACIN 500 MG TABLET PO SCH (11:30)
== END 2021-08-15 16:02 | disposition home or self-care (01) | DRG 291 ==
LOC: EDBD → EDUNIT# → N.ED 19:04 → N.3E 22:26
PROVIDERS: ADMIT Internal Medicine; ATTEND Internal Medicine

== ENCOUNTER 2021-10-25 17:51 | Inpatient (IN) ==
[2021-10-25] MEDS ORDERED: levETIRAcetam 500 MG/5 ML VIAL IV ONE (18:14)
[2021-10-25] MEDS ORDERED: DIAZEPAM 10 MG/2 ML SYRINGE ONE (18:14)
[2021-10-25] MEDS ORDERED: SODIUM CHLORIDE 0.9% 1,000 ML IV STA ×2 (18:26→20:22)
[2021-10-25] MEDS ORDERED: DIAZEPAM 10 MG/2 ML SYRINGE IV STA (18:39)
[2021-10-25 19:41] LABS: Basophils % 0.5 % (0.0-0.8); Hematocrit 40.2 VOL% (42.0-52.0); Hemoglobin 12.2 GM/DL (14.0-18.0); Immature Granulocytes % 0.7 %; Immature Granulocytes Absolute 0.04 #; Lymphocytes # 0.5 10*3/uL (1.4-4.0); Lymphocytes % 9.2 % (21.2-54.2); Mean Corpuscular HGB Conc 30.3 GM/DL (32-36); Monocytes # 0.1 10*3/uL (0.11-0.8); Monocytes % 2.2 % (1.7-12.7); Neutrophils % 87.4 % (38.7-73.9); Platelet Count 212 T/CUMM (130-400); Red Blood Count 5.51 MC/CUMM (3.8-5.5); Red Cell Distribution Width 17.1 % (9.3-17.3); White Blood Count 5.9 T/CUMM (4-12)
[2021-10-25] MEDS ORDERED: INSULIN REGULAR DRIP 100 ML IV PRN (19:57)
[2021-10-25] MEDS ORDERED: INSULIN REGULAR 100 UNIT/ML IV STA (19:59)
[2021-10-25 20:11] LABS: Alanine Aminotransferase 13 U/L (16-61); Albumin 3.1 G/DL (3.4-5.0); Alkaline Phosphatase 208 U/L (45-117); Aspartate Amino Transferase 14 U/L (0-37); Blood Urea Nitrogen 57 MG/DL (7-18); Calcium 9.7 MG/DL (8.5-10.1); Carbon Dioxide 13 MMOL/L (21-32); Chloride 89 MMOL/L (98-107); Osmolality,Calculated 309.5 MOS/KG (273-304); Potassium 5.8 MMOL/L (3.5-5.1); Sodium 125 MMOL/L (136-145); Total Protein 7.6 G/DL (6.4-8.2)
[2021-10-25 20:14] LABS: Arterial Base Excess iSTAT -16 MMOL/L (-2.5-2.5); Arterial Bicarbonate iSTAT 10.2 MMOL/L (20-26); Arterial O2 Saturation iSTAT 97 % (95-100); Arterial PCO2 iSTAT 27 MM HG (35-48); Arterial PO2 iSTAT 109 MM HG (80-95); Arterial Total CO2 iSTAT 11 MMO/L (23-27)
[2021-10-25 20:14] LABS: Glucose 874 MG/DL (74-106)
[2021-10-25] MEDS ORDERED: SODIUM BICARBONATE 50 MEQ/50 ML VIAL IV STA (20:20)
[2021-10-25 21:09] LABS: Poikilocytosis 1+
[2021-10-25 21:11] LABS: Platelet Estimate Normal
[2021-10-25] MEDS ORDERED: MAGNESIUM SULF RIDER 2 GM/50 ML PREMIX IV PRN (22:00)
[2021-10-25] MEDS ORDERED: POTASSIUM CHLORIDE RIDER 10 MEQ/100 ML PREMIX IV PRN (22:00)
[2021-10-25] MEDS ORDERED: SODIUM PHOSPHATE IV PRN (22:00)
[2021-10-25] MEDS ORDERED: MAGNESIUM SULF RIDER 4 GM/100 ML PREMIX IV PRN (22:00)
[2021-10-25] MEDS ORDERED: SODIUM CHLORIDE 0.9% IV PRN (22:00)
[2021-10-25] MEDS ORDERED: SODIUM BICARB INJ 100 MEQ in STERILE WATER INJ 400 ML IV PRN (22:00)
[2021-10-25 22:01] LABS: Mucus,Urine Occasional /LPF (Occasional); RBC,Urine 599 /HPF (0-4)
[2021-10-25 22:02] LABS: Bilirubin,Urine Negative (Negative); Blood, Urine Large mg/dL (Negative); Glucose,Urine (UA) >=1000 mg/dL (Negative); Ketones,Urine 40 mg/dL (Negative); Nitrite,Urine Negative (Negative); Protein,Urine >=300 mg/dL (Negative); Urine Appearance Cloudy (Clear); Urine Color Light Yellow (Yellow); Urine Specific Gravity 1.025 (1.001-1.035); Urine Urobilinogen 0.2 eU/dL (<2.0); Urine pH 5.5 (4.5-8.0)
[2021-10-25] MEDS ORDERED: ALBUTEROL 2.5 MG/3 ML NEB RESP TX PRN (22:06)
[2021-10-25] MEDS ORDERED: DOCUSATE SODIUM 100 MG CAPSULE PO PRN (22:12)
[2021-10-25] MEDS ORDERED: ACETAMINOPHEN 325 MG TABLET PO PRN (22:12)
[2021-10-25] MEDS ORDERED: ONDANSETRON 4 MG/2 ML VIAL IV PRN (22:12)
[2021-10-25] MEDS: SODIUM CHLORIDE 0.9% 1,000 ML IV SCH (22:20)
[2021-10-25] MEDS ORDERED: DEXTROSE 10% 250 ML BAG IV PRN ×2 (22:26→22:27)
[2021-10-25 22:31] LABS: Barbiturates Screen,Urine Negative (Negative); Benzodiazepines Screen,Urine Negative (Negative); Cannabinoid Screen,Urine Negative (Negative); Opiate Screen,Urine Negative (Negative); Phencyclidine Screen,Urine Negative (Negative)
[2021-10-25 22:45] LABS: Calcium 8.6 MG/DL (8.5-10.1); Osmolality,Calculated 315.4 MOS/KG (273-304); Potassium 4.1 MMOL/L (3.5-5.1)
[2021-10-25] MEDS ORDERED: HEPARIN 5,000 UNIT/1 ML VIAL SUBCUT SCH (23:00)
[2021-10-25] MEDS: MEROPENEM 500 MG in SODIUM CHLORIDE 0.9% 100 ML IV SCH (23:07)
[2021-10-26] MEDS: SODIUM CHLORIDE 0.9% 1,000 ML IV SCH ×2 (00:26→20:37)
[2021-10-26] MEDS ORDERED: MORPHINE 2 MG/1 ML SYRINGE IV PRN (02:07)
[2021-10-26] MEDS ORDERED: ASPIRIN 325 MG TABLET PO ONE (02:20)
[2021-10-26 02:26] LABS: Calcium 7.6 MG/DL (8.5-10.1); Osmolality,Calculated 315.7 MOS/KG (273-304); Potassium 4.2 MMOL/L (3.5-5.1)
[2021-10-26] MEDS ORDERED: HEPARIN DRIP 25,000 UNITS/500 ML PREMIX IV SCH (02:30)
[2021-10-26 02:33] LABS: INR 1.1; PT Patient Result 11.7 SECS (10.1-12.1); Partial Thromboplastin Time 36.4 SECS (23.7-32.9)
[2021-10-26] MEDS ORDERED: SODIUM CHLORIDE 0.9% 1,000 ML IV SCH (03:00)
[2021-10-26 04:25] LABS: Basophils % 0.3 % (0.0-0.8); Hematocrit 29.4 VOL% (42.0-52.0); Hemoglobin 9.4 GM/DL (14.0-18.0); Immature Granulocytes % 0.5 %; Immature Granulocytes Absolute 0.03 #; Lymphocytes % 14.7 % (21.2-54.2); Mean Corpuscular Volume 70.5 FL (87-102); Mean Platelet Volume 10.7 FL (9.6-12.0); Monocytes # 0.5 10*3/uL (0.11-0.8); Monocytes % 7.9 % (1.7-12.7); Neutrophils % 76.6 % (38.7-73.9); Platelet Count 222 T/CUMM (130-400); Red Blood Count 4.17 MC/CUMM (3.8-5.5); Red Cell Distribution Width 17.1 % (9.3-17.3); White Blood Count 6.6 T/CUMM (4-12)
[2021-10-26 04:39] LABS: Phosphorous 4.4 MG/DL (2.5-4.9)
[2021-10-26 04:42] LABS: Hypochromia 1+
[2021-10-26 04:43] LABS: Microcytosis 1+; Platelet Estimate Normal
[2021-10-26 06:10] LABS: Calcium 7.9 MG/DL (8.5-10.1); Osmolality,Calculated 307.7 MOS/KG (273-304)
[2021-10-26] MEDS: SODIUM CHLOR 0.45% KCL 20 MEQ 20 MEQ/1,000 ML BAG IV SCH ×3 (06:20→16:39)
[2021-10-26 09:41] LABS: Calcium 7.7 MG/DL (8.5-10.1); Osmolality,Calculated 298.2 MOS/KG (273-304)
[2021-10-26] MEDS: levETIRAcetam 500 MG TABLET PO SCH ×2 (09:59→20:37)
[2021-10-26] MEDS: HEPARIN 5,000 UNIT/1 ML VIAL SUBCUT SCH ×2 (10:44→22:36)
[2021-10-26] MEDS: MEROPENEM 500 MG in SODIUM CHLORIDE 0.9% 100 ML IV SCH ×2 (10:44→22:35)
[2021-10-26] MEDS: RANOLAZINE 500 MG TABLET PO SCH ×2 (12:06→20:37)
[2021-10-26] MEDS: ISOSORBIDE MONONITRATE 30 MG TABLET PO SCH (12:06)
[2021-10-26] MEDS ORDERED: INSULIN GLARGINE 100 UNIT/ML SUBCUT ONE (14:52)
[2021-10-26] MEDS ORDERED: GLUCAGON 1 MG VIAL IM PRN (14:52)
[2021-10-26] MEDS ORDERED: DEXTROSE 50% 25 GM/50 ML VIAL IV PRN (14:52)
[2021-10-26] MEDS ORDERED: SODIUM CHLORIDE 0.45% 1,000 ML IV SCH (15:00)
[2021-10-26] MEDS: INSULIN LISPRO 100 UNIT/ML SUBCUT SCH ×2 (18:43→22:35)
[2021-10-26] MEDS: INSULIN GLARGINE 100 UNIT/ML SUBCUT SCH (20:37)
[2021-10-26] MEDS: METOPROLOL TARTRATE 50 MG TABLET PO SCH ×2 (20:37→20:41)
[2021-10-26 21:08] LABS: Calcium 8.2 MG/DL (8.5-10.1); Osmolality,Calculated 299.4 MOS/KG (273-304); Potassium 4.3 MMOL/L (3.5-5.1)
[2021-10-27] MEDS: INSULIN LISPRO 100 UNIT/ML SUBCUT SCH ×6 (02:45→22:32)
[2021-10-27 03:48] LABS: Eosinophils # 0.2 10*3/uL (0.0-0.87); Hemoglobin 9.4 GM/DL (14.0-18.0); Immature Granulocytes % 0.5 %; Immature Granulocytes Absolute 0.02 #; Lymphocytes # 1.4 10*3/uL (1.4-4.0); Lymphocytes % 32.3 % (21.2-54.2); Mean Corpuscular HGB Conc 31.3 GM/DL (32-36); Mean Corpuscular Volume 71.6 FL (87-102); Mean Platelet Volume 10.6 FL (9.6-12.0); Monocytes # 0.4 10*3/uL (0.11-0.8); Monocytes % 9.3 % (1.7-12.7); Neutrophils % 51.9 % (38.7-73.9); Platelet Count 219 T/CUMM (130-400); Red Blood Count 4.19 MC/CUMM (3.8-5.5); Red Cell Distribution Width 17.6 % (9.3-17.3); White Blood Count 4.2 T/CUMM (4-12)
[2021-10-27 04:00] LABS: Calcium 8.1 MG/DL (8.5-10.1); Osmolality,Calculated 292.5 MOS/KG (273-304); Potassium 3.8 MMOL/L (3.5-5.1)
[2021-10-27 04:21] LABS: Platelet Estimate Normal
[2021-10-27] MEDS: levETIRAcetam 500 MG TABLET PO SCH ×2 (09:12→20:49)
[2021-10-27] MEDS: ROSUVASTATIN 20 MG TABLET PO SCH (09:12)
[2021-10-27] MEDS: ISOSORBIDE MONONITRATE 30 MG TABLET PO SCH (09:12)
[2021-10-27] MEDS: RANOLAZINE 500 MG TABLET PO SCH ×2 (09:12→20:49)
[2021-10-27] MEDS: ASPIRIN EC 81 MG TABLET PO SCH (09:12)
[2021-10-27] MEDS: METOPROLOL TARTRATE 50 MG TABLET PO SCH ×2 (09:12→20:49)
[2021-10-27] MEDS: SODIUM CHLORIDE 0.9% 1,000 ML IV SCH ×3 (09:12→20:49)
[2021-10-27] MEDS: CLOPIDOGREL 75 MG TABLET PO SCH (09:12)
[2021-10-27] MEDS: MEROPENEM 500 MG in SODIUM CHLORIDE 0.9% 100 ML IV SCH ×2 (11:36→22:30)
[2021-10-27] MEDS: HEPARIN 5,000 UNIT/1 ML VIAL SUBCUT SCH (15:38)
[2021-10-27] MEDS: INSULIN GLARGINE 100 UNIT/ML SUBCUT SCH (20:49)
[2021-10-28] MEDS: INSULIN LISPRO 100 UNIT/ML SUBCUT SCH ×6 (03:26→23:20)
[2021-10-28] MEDS: HEPARIN 5,000 UNIT/1 ML VIAL SUBCUT SCH ×2 (05:50→16:56)
[2021-10-28 06:04] LABS: Basophils # 0.1 10*3/uL (0.0-0.2); Basophils % 1.3 % (0.0-0.8); Eosinophils # 0.3 10*3/uL (0.0-0.87); Hematocrit 30.9 VOL% (42.0-52.0); Hemoglobin 9.5 GM/DL (14.0-18.0); Immature Granulocytes % 0.4 %; Immature Granulocytes Absolute 0.02 #; Lymphocytes # 1.6 10*3/uL (1.4-4.0); Lymphocytes % 35.1 % (21.2-54.2); Mean Corpuscular HGB Conc 30.7 GM/DL (32-36); Mean Corpuscular Volume 71.5 FL (87-102); Monocytes # 0.5 10*3/uL (0.11-0.8); Monocytes % 11.2 % (1.7-12.7); Platelet Count 198 T/CUMM (130-400); Red Blood Count 4.32 MC/CUMM (3.8-5.5); Red Cell Distribution Width 17.9 % (9.3-17.3); White Blood Count 4.5 T/CUMM (4-12)
[2021-10-28 06:17] LABS: Calcium 8.1 MG/DL (8.5-10.1); Osmolality,Calculated 288.3 MOS/KG (273-304)
[2021-10-28] MEDS: SODIUM CHLORIDE 0.9% 1,000 ML IV SCH ×4 (06:24→21:18)
[2021-10-28 06:46] LABS: Anisocytosis 1+; Burr Cells 2+; Platelet Estimate Normal
[2021-10-28 06:47] LABS: Poikilocytosis Slight
[2021-10-28] MEDS: MEROPENEM 500 MG in SODIUM CHLORIDE 0.9% 100 ML IV SCH ×2 (09:38→23:00)
[2021-10-28] MEDS: ASPIRIN EC 81 MG TABLET PO SCH (09:39)
[2021-10-28] MEDS: CLOPIDOGREL 75 MG TABLET PO SCH (09:39)
[2021-10-28] MEDS: RANOLAZINE 500 MG TABLET PO SCH ×2 (09:39→21:18)
[2021-10-28] MEDS: ISOSORBIDE MONONITRATE 30 MG TABLET PO SCH (09:39)
[2021-10-28] MEDS: ROSUVASTATIN 20 MG TABLET PO SCH (09:39)
[2021-10-28] MEDS: levETIRAcetam 500 MG TABLET PO SCH ×2 (09:39→21:18)
[2021-10-28] MEDS: METOPROLOL TARTRATE 50 MG TABLET PO SCH ×2 (09:39→21:18)
[2021-10-28] MEDS: CALCIUM CARBONATE CHEW 500 MG TABLET PO PRN (19:34)
[2021-10-28] MEDS: INSULIN GLARGINE 100 UNIT/ML SUBCUT SCH (21:18)
[2021-10-29] MEDS: INSULIN LISPRO 100 UNIT/ML SUBCUT SCH ×6 (02:35→22:37)
[2021-10-29 05:18] LABS: Calcium 8.8 MG/DL (8.5-10.1); Osmolality,Calculated 292.8 MOS/KG (273-304); Potassium 3.9 MMOL/L (3.5-5.1)
[2021-10-29] MEDS: HEPARIN 5,000 UNIT/1 ML VIAL SUBCUT SCH ×2 (05:33→17:15)
[2021-10-29 05:52] LABS: Basophils # 0.1 10*3/uL (0.0-0.2); Basophils % 1.1 % (0.0-0.8); Eosinophils # 0.3 10*3/uL (0.0-0.87); Eosinophils % 6.2 % (0.00-10.9); Hemoglobin 9.7 GM/DL (14.0-18.0); Immature Granulocytes % 0.4 %; Immature Granulocytes Absolute 0.02 #; Lymphocytes # 1.6 10*3/uL (1.4-4.0); Lymphocytes % 36.1 % (21.2-54.2); Mean Corpuscular HGB Conc 31.3 GM/DL (32-36); Mean Corpuscular Volume 71.4 FL (87-102); Monocytes # 0.5 10*3/uL (0.11-0.8); Monocytes % 10.8 % (1.7-12.7); Neutrophils % 45.4 % (38.7-73.9); Platelet Count 216 T/CUMM (130-400); Red Blood Count 4.34 MC/CUMM (3.8-5.5); Red Cell Distribution Width 18.3 % (9.3-17.3); White Blood Count 4.5 T/CUMM (4-12)
[2021-10-29 05:55] LABS: Acanthocytes Few; Hypochromia 1+; Microcytosis 1+
[2021-10-29 05:56] LABS: Platelet Estimate Normal
[2021-10-29] MEDS: SODIUM CHLORIDE 0.9% 1,000 ML IV SCH ×4 (07:55→22:38)
[2021-10-29] MEDS: METOPROLOL TARTRATE 50 MG TABLET PO SCH (09:13)
[2021-10-29] MEDS: ROSUVASTATIN 20 MG TABLET PO SCH (09:13)
[2021-10-29] MEDS: levETIRAcetam 500 MG TABLET PO SCH ×2 (09:13→21:00)
[2021-10-29] MEDS: CLOPIDOGREL 75 MG TABLET PO SCH (09:13)
[2021-10-29] MEDS: ISOSORBIDE MONONITRATE 30 MG TABLET PO SCH (09:13)
[2021-10-29] MEDS: RANOLAZINE 500 MG TABLET PO SCH ×2 (09:13→21:00)
[2021-10-29] MEDS: ASPIRIN EC 81 MG TABLET PO SCH (09:13)
[2021-10-29] MEDS: CALCIUM CARBONATE CHEW 500 MG TABLET PO PRN (09:50)
[2021-10-29] MEDS: MEROPENEM 500 MG in SODIUM CHLORIDE 0.9% 100 ML IV SCH ×2 (10:55→22:00)
[2021-10-29] MEDS: carvediloL 3.125 MG TABLET PO SCH (21:00)
[2021-10-29] MEDS: INSULIN GLARGINE 100 UNIT/ML SUBCUT SCH (22:37)
[2021-10-30 06:23] LABS: Basophils # 0.1 10*3/uL (0.0-0.2); Basophils % 1.2 % (0.0-0.8); Eosinophils # 0.2 10*3/uL (0.0-0.87); Eosinophils % 4.2 % (0.00-10.9); Hematocrit 31.6 VOL% (42.0-52.0); Hemoglobin 9.8 GM/DL (14.0-18.0); Immature Granulocytes % 0.8 %; Immature Granulocytes Absolute 0.04 #; Lymphocytes # 1.4 10*3/uL (1.4-4.0); Mean Corpuscular Volume 71.8 FL (87-102); Monocytes # 0.6 10*3/uL (0.11-0.8); Monocytes % 11.4 % (1.7-12.7); Neutrophils % 55.4 % (38.7-73.9); Platelet Count 208 T/CUMM (130-400); Red Cell Distribution Width 18.4 % (9.3-17.3); White Blood Count 5.2 T/CUMM (4-12)
[2021-10-30 06:39] LABS: Calcium 8.6 MG/DL (8.5-10.1); Osmolality,Calculated 286.1 MOS/KG (273-304); Potassium 3.9 MMOL/L (3.5-5.1)
[2021-10-30] MEDS: HEPARIN 5,000 UNIT/1 ML VIAL SUBCUT SCH ×2 (06:51→17:27)
[2021-10-30] MEDS: carvediloL 3.125 MG TABLET PO SCH (08:37)
[2021-10-30] MEDS: RANOLAZINE 500 MG TABLET PO SCH ×2 (08:37→20:57)
[2021-10-30] MEDS: ROSUVASTATIN 20 MG TABLET PO SCH (08:37)
[2021-10-30] MEDS: ISOSORBIDE MONONITRATE 30 MG TABLET PO SCH (08:37)
[2021-10-30] MEDS: levETIRAcetam 500 MG TABLET PO SCH ×2 (08:38→20:57)
[2021-10-30] MEDS: INSULIN LISPRO 100 UNIT/ML SUBCUT SCH ×4 (10:24→20:58)
[2021-10-30] MEDS: ASPIRIN EC 81 MG TABLET PO SCH (10:26)
[2021-10-30] MEDS: CLOPIDOGREL 75 MG TABLET PO SCH (10:30)
[2021-10-30] MEDS: MEROPENEM 500 MG in SODIUM CHLORIDE 0.9% 100 ML IV SCH ×2 (14:02→21:01)
[2021-10-30] MEDS: hydrALAZINE 25 MG TABLET PO SCH ×2 (17:26→20:57)
[2021-10-30] MEDS: carvediloL 6.25 MG TABLET PO SCH (17:27)
[2021-10-30] MEDS: INSULIN GLARGINE 100 UNIT/ML SUBCUT SCH (21:05)
[2021-10-31] MEDS: HEPARIN 5,000 UNIT/1 ML VIAL SUBCUT SCH (04:14)
[2021-10-31 05:45] LABS: Basophils # 0.1 10*3/uL (0.0-0.2); Eosinophils # 0.3 10*3/uL (0.0-0.87); Eosinophils % 5.4 % (0.00-10.9); Hematocrit 31.9 VOL% (42.0-52.0); Immature Granulocytes % 0.4 %; Immature Granulocytes Absolute 0.02 #; Lymphocytes # 1.5 10*3/uL (1.4-4.0); Lymphocytes % 29.9 % (21.2-54.2); Mean Corpuscular HGB Conc 31.3 GM/DL (32-36); Mean Corpuscular Volume 71.4 FL (87-102); Mean Platelet Volume 10.4 FL (9.6-12.0); Monocytes # 0.5 10*3/uL (0.11-0.8); Monocytes % 9.6 % (1.7-12.7); Neutrophils % 53.7 % (38.7-73.9); Platelet Count 228 T/CUMM (130-400); Red Blood Count 4.47 MC/CUMM (3.8-5.5); Red Cell Distribution Width 18.8 % (9.3-17.3)
[2021-10-31 06:00] LABS: Calcium 8.5 MG/DL (8.5-10.1); Osmolality,Calculated 285.1 MOS/KG (273-304); Potassium 3.9 MMOL/L (3.5-5.1)
[2021-10-31 08:03] VITALS: BP 149/88
[2021-10-31] MEDS ORDERED: ISOSORBIDE MONONITRATE 30 MG TABLET PO SCH (09:00)
[2021-10-31] MEDS ORDERED: hydrALAZINE 25 MG TABLET PO SCH (11:00)
[2021-10-31] MEDS: INSULIN LISPRO 100 UNIT/ML SUBCUT SCH ×2 (11:11→11:44)
[2021-10-31] MEDS: ROSUVASTATIN 20 MG TABLET PO SCH (11:19)
[2021-10-31] MEDS: RANOLAZINE 500 MG TABLET PO SCH (11:19)
[2021-10-31] MEDS: ASPIRIN EC 81 MG TABLET PO SCH (11:20)
[2021-10-31] MEDS: levETIRAcetam 500 MG TABLET PO SCH (11:20)
[2021-10-31] MEDS: CLOPIDOGREL 75 MG TABLET PO SCH (11:20)
[2021-10-31] MEDS: carvediloL 6.25 MG TABLET PO SCH (11:22)
[2021-10-31] MEDS: MEROPENEM 500 MG in SODIUM CHLORIDE 0.9% 100 ML IV SCH (11:29)
[2021-10-31] MEDS: SODIUM CHLORIDE 0.9% 1,000 ML IV SCH (13:50)
[2021-10-31] MEDS ORDERED: carvediloL 12.5 MG TABLET PO SCH (17:00)
== END 2021-10-31 14:15 | disposition home health service (06) | DRG 637 ==
LOC: EDBD → EDUNIT# → N.ED 17:51 → N.EDINP 20:27 → SUATTDRO 20:27 → N.CC 21:31 → N.5E 10-30 01:21
PROVIDERS: ADMIT Family Medicine; ATTEND Family Medicine